=== PATIENT | male | born 1980 | race Hispanic/Latino ===

== ENCOUNTER 2017-10-18 19:47 | Emergency (ER) | payer BC ==
[~2017-10-18] VITALS: Ht 162.6 cm; Wt 75.8 kg
[~2017-10-18 19:47] MED LIST: CEPHALEXIN500 MG OR; LORTAB 5 OR; NO HOME MEDS; ULTRAM50 M1 PO
[2017-10-18] MEDS ORDERED: CEPHALEXIN500 M1 PO (20:12)
[2017-10-18] MEDS ORDERED: BACTRIM DS1 TAB PO (20:12)
[2017-10-18 21:55] VITALS: BP 120/79
== END 2017-10-18 21:55 | disposition home or self-care (01) | DRG 605 ==
LOC: ED 19:47
DX: S61.032A Puncture wound without foreign body of left thumb without damage to nail, initial encounter (principal); W11.XXXA Fall on and from ladder, initial encounter

== ENCOUNTER 2022-01-15 20:51 | Emergency (ER) | payer OTHER ==
[~2022-01-15] VITALS: Ht 162.6 cm; Wt 81.0 kg
[~2022-01-15 20:51] MED LIST changes: +BACTRIM DS1 TAB PO; +CEPHALEXIN500 M1 PO
[2022-01-15 22:16] VITALS: BP 115/68
[2022-01-15] MEDS ORDERED: MELOXICAM7.5 MG PO (22:47)
[2022-01-15 23:22] VITALS: BP 115/68
== END 2022-01-15 23:22 | disposition home or self-care (01) | DRG 556 ==
LOC: ED 20:51
DX: M25.512 Pain in left shoulder (principal); M54.2 Cervicalgia; M62.838 Other muscle spasm; V59.40XA Driver of pick-up truck or van injured in collision with unspecified motor vehicles in traffic accident, initial encounter